=== PATIENT | female | born 1995 | race Caucasian/White ===

== ENCOUNTER 2017-03-25 13:03 | Observation (INO) | payer OTHER ==
[~2017-03-25 13:03] MED LIST: AUGMENTIN 875-1 EAC2 PO; BACTRIM DS TABL1 TAB PO; BIOTIN PO; CIPRODEX OTIC7.5 ML OT; COLACE100 M1 PO; CRYSELLE1 TAB PO; CYCLOBENZAPRINE5 M1 PO; DICLEGIS DR 101 EACH PO; KEFLEX500 M4 PO; LEVOTHROID100 MCG PO; LEVOTHROID88 MCG PO; LEXAPRO10 M1 PO; LORATADINE10 M1 PO; MACROBID 100 M100 M1 PO; MIRALAX17 G2 PO; MULTIVITAM1 TAB.CHEW PO; NORCO 5/3251 TA1 PO; OS-CAL 500500 MG/TA1 PO; PRENATAL CAPLE1 EACH PO; PRENATAL VITAM1 EA12 PO; PROMETHAZINE-C118 ML PO; PYRIDIUM200 MG PO; REGLAN10 M2 PO; ROCALTROL0.25 MCG PO; SYNTHROID100 MC1 PO; TOPAMAX50 M3 PO; ZOFRAN4 MG PO; [UNRECOGNIZED DRUG - OTHER] PO
[2017-03-25] MEDS ORDERED: LEVOTHYROXINE125 MC1 PO (13:54)
[2017-03-25] MEDS ORDERED: VALTREX500 M1 PO (13:55)
[2017-03-25] MEDS ORDERED: DICLEGIS DR 101 EACH PO (13:56)
== END 2017-03-25 17:30 ==
LOC: LDR 13:03
PROVIDERS: ADMIT Obstetrics & Gynecology
DX: O32.1XX0 Maternal care for breech presentation, not applicable or unspecified (principal); Z3A.35 35 weeks gestation of pregnancy; Z79.899 Other long term (current) drug therapy; Z88.8 Allergy status to other drugs, medicaments and biological substances; Z91.040 Latex allergy status; Z91.048 Other nonmedicinal substance allergy status; Z98.890 Other specified postprocedural states

== ENCOUNTER 2017-03-26 16:24 | Inpatient (IN) | payer OTHER ==
[~2017-03-26 16:24] MED LIST changes: +LEVOTHYROXINE125 MC1 PO; +VALTREX500 M1 PO
[2017-03-26 21:44] LABS: BASO % 0.1 % (0-2); EOS % 0.2 % (0-7); HCT-HEMATOCRIT 34.1 % (34.0-49.0); HGB-HEMOGLOBIN 11.4 gm/dl (12.0-15.5); IMMATURE GRANULOCYTES ABSOLUTE 0.07 tho/cmm (0-0.03); IMMATURE GRANULOCYTES PERCENT 0.4 % (0-0.3); LYMPH % 6.9 % (20-45); LYMPH ABSOLUTE COUNT 1.2 tho/cmm (0.8-4.5); MCH (MEAN CORPUSCULAR HGB) 30.9 pg (28.0-32.0); MCHC MEAN CORPUSCULAR HGB CONC 33.4 % (32.0-36.0); MCV (MEAN CELL VOLUME) 92.4 fl (82.0-96.0); MEAN PLATELET VOLUME 10.1 cmc (9.4-12.4); MONOCYTE ABSOLUTE COUNT 0.5 tho/cmm (0.0-1.2); NEUTROPHIL ABSOLUTE COUNT 15.4 tho/cmm (1.6-8.0); NEUTROPHIL-AUTOMATED 15.4 tho/cmm (1.6-8.0); NEUTROPHILS % 89.4 % (40-80); PLATELET COUNT 186 tho/cmm (150-450); RED BLOOD COUNT 3.69 mil/cmm (4.00-5.20); RED CELL DISTRIBUTION WIDTH 13.9 % (12.4-16.4); WHITE BLOOD COUNT 17.3 tho/cmm (4.0-10.0)
[2017-03-28 07:53] LABS: BASO % 0.1 % (0-2); EOS % 0.2 % (0-7); HCT-HEMATOCRIT 32.6 % (34.0-49.0); HGB-HEMOGLOBIN 10.7 gm/dl (12.0-15.5); IMMATURE GRANULOCYTES ABSOLUTE 0.06 tho/cmm (0-0.03); IMMATURE GRANULOCYTES PERCENT 0.4 % (0-0.3); LYMPH % 15.7 % (20-45); LYMPH ABSOLUTE COUNT 2.1 tho/cmm (0.8-4.5); MCH (MEAN CORPUSCULAR HGB) 30.3 pg (28.0-32.0); MCHC MEAN CORPUSCULAR HGB CONC 32.8 % (32.0-36.0); MCV (MEAN CELL VOLUME) 92.4 fl (82.0-96.0); MEAN PLATELET VOLUME 10.2 cmc (9.4-12.4); MONO % 6.8 % (0-12); MONOCYTE ABSOLUTE COUNT 0.9 tho/cmm (0.0-1.2); NEUTROPHIL ABSOLUTE COUNT 10.3 tho/cmm (1.6-8.0); NEUTROPHIL-AUTOMATED 10.3 tho/cmm (1.6-8.0); NEUTROPHILS % 76.8 % (40-80); PLATELET COUNT 190 tho/cmm (150-450); RED BLOOD COUNT 3.53 mil/cmm (4.00-5.20); RED CELL DISTRIBUTION WIDTH 14.4 % (12.4-16.4); WHITE BLOOD COUNT 13.5 tho/cmm (4.0-10.0)
[2017-03-30] MEDS ORDERED: IBUPROFEN800 M1 PO (07:05)
[2017-03-30] MEDS ORDERED: NORCO 5-325 TA1 EACH PO (07:05)
[2017-03-30] MEDS ORDERED: COLACE100 M1 PO (07:06)
== END 2017-03-30 17:55 | DRG 765 ==
LOC: LDR 16:24 → OBGE 22:40
PROVIDERS: ADMIT Obstetrics & Gynecology
PROC: 10D00Z1 Extraction of Products of Conception, Low, Open Approach (ICD-10-PCS; principal; 2017-03-26)
DX: O60.14X0 Preterm labor third trimester with preterm delivery third trimester, not applicable or unspecified (principal); O45.93 Premature separation of placenta, unspecified, third trimester; O32.1XX0 Maternal care for breech presentation, not applicable or unspecified; E03.9 Hypothyroidism, unspecified; Z3A.35 35 weeks gestation of pregnancy; Z37.0 Single live birth; O76 Abnormality in fetal heart rate and rhythm complicating labor and delivery; O99.284 Endocrine, nutritional and metabolic diseases complicating childbirth; O36.8130 Decreased fetal movements, third trimester, not applicable or unspecified; O99.344 Other mental disorders complicating childbirth; F41.9 Anxiety disorder, unspecified
CPT/HCPCS: J0702; J2270; J2370; J2540; J2590; J7121